=== PATIENT | female | born 1985 | race Hispanic/Latino ===

== ENCOUNTER 2018-08-21 18:35 | Emergency (ER) | payer SELFPAY ==
--- NOTE | 2018-08-21 19:26 | RAD ---
RADIOGRAPH CHEST 2 VIEWS: DATE: 08/21/2018 HISTORY: Cough and chest pain FINDINGS: There is no airspace density, pulmonary edema, pleural effusion, pneumothorax, or cardiomegaly. IMPRESSION: No acute cardiopulmonary findings.
== END 2018-08-21 19:42 | disposition home or self-care (01) ==
LOC: SCSER 18:35
DX: J45.909 Unspecified asthma, uncomplicated (principal); J04.0 Acute laryngitis; G43.909 Migraine, unspecified, not intractable, without status migrainosus; F41.9 Anxiety disorder, unspecified; F32.9 Major depressive disorder, single episode, unspecified; Z79.899 Other long term (current) drug therapy
CPT/HCPCS: 71046; J7620